=== PATIENT | female | born 1965 | race Caucasian/White ===

== ENCOUNTER 2016-08-12 08:13 | Emergency (ER) | payer BC, OTHER ==
[2016-08-12 08:23] VITALS: BP 124/70
--- NOTE | 2016-08-12 08:59 | EDM.PDOC ---
ED HPI GENERAL MEDICAL PROBLEM - General Chief Complaint: Respiratory Problem Stated Complaint: SENT FROM DR ALVARADO Time Seen by Provider: 08/12/16 08:40 Source of Information: Reports: Patient History Limitations: Reports: No Limitations - History of Present Illness INITIAL COMMENTS - FREE TEXT/NARRATIVE: This 51 yo female patient reports to the ED due to increased shortness of breath with exertion and weigh gain. The patient reports she started to notice shortness of breath over the weekend (Tuesday specifically). The patient reports she noticed some numbness and tingling that started Tuesday Morning when she went to work. The patient was seen in the [facility] on Tuesday, had a complete lab work-up, and had an EKG. The patient's Lasix was increased due to increased edema. The patient reports the swelling in her legs has gotten better , but now she continues to feel lightheaded and tingling throughout her body. The patient reports, this morning, she noticed increased shortness of breath while speaking with a coworker. The patient reports she was walking about 2 to 2 1/2 miles per day up until Tuesday, but has not been walking since that time. The patient reports she has been eating, drinking, urinating and having bowel movement regularly. The patient has a past history of Asthma, depression, WENDY, GERD, and LEROY on CPAP. Onset Date: 08/08/16 Duration: Intermittent Location: Reports: Generalized Quality: Reports: Other (lightheadedness, tingling, increased shortness of breath with exertion) Severity: Moderate Improves with: Reports: None Worsens with: Reports: Movement Associated Symptoms: Reports: No Other Symptoms - Related Data Allergies Allergy/AdvReac Type Severity Reaction Status Date / Time dexamethasone Allergy Vomiting Verified 08/12/16 08:23 lisdexamfetamine dimesylate Allergy Depression Verified 08/12/16 08:23 [From Vyvanse] meperidine HCl [From Demerol] Allergy Vomiting Verified 08/12/16 08:23 triazolam [From Halcion] Allergy Other Verified 08/12/16 08:23 Home Meds: Home Meds Citalopram Hydrobromide [Celexa] 40 mg PO BEDTIME 09/21/15 [History] oxyCODONE HCl/Acetaminophen [Percocet 5-325 mg Tablet] 1 each PO ASDIRECTED PRN 09/21/15 [History] Albuterol [IJD: Ventolin HFA] 2 puff INH .TWICE DAILY PRN 08/12/16 [History] Cetirizine [ZyrTEC] 10 mg PO DAILY PRN 08/12/16 [History] Cholecalciferol (Vitamin D3) [Vitamin D3] 1,000 unit PO DAILY 08/12/16 [History] ClonazePAM [KlonoPIN] 0.5 mg PO BID PRN 08/12/16 [History] Cyanocobalamin (Vitamin B-12) [Vitamin B-12] 100 mcg PO DAILY 08/12/16 [History] Esomeprazole [NexIUM] 40 mg PO ACBREAKFAST PRN 08/12/16 [History] Furosemide [Lasix] 40 mg PO DAILY 08/12/16 [History] Potassium Chloride [Klor-Con M20] 20 meq PO DAILY 08/12/16 [History] #103/Iron Fumarate/Fa [ ] 1 tab PO DAILY 08/12/16 [ History] Scopolamine [Transderm-Scop] 1.5 mg TOP ONETIME PRN 08/12/16 [History] Vilazodone [Viibryd] 40 mg PO DAILY 08/12/16 [History] risperiDONE [Risperidone] 0.5 mg PO BEDTIME 08/12/16 [History] traZODone 50 mg PO BEDTIME PRN 08/12/16 [History] Past Medical History HEENT History: Reports: Impaired Vision Respiratory History: Reports: Asthma Psychiatric History: Reports: Depression - Past Surgical History HEENT Surgical History: Reports: Eye Surgery GI Surgical History: Reports: Bariatric Procedure, Cholecystectomy Female Surgical History: Reports: Tubal Ligation Musculoskeletal Surgical History: Reports: Other (See Below) Social & Family History - Tobacco Use Smoking Status *Q: Never Smoker Second Hand Smoke Exposure: No - Caffeine Use Caffeine Use: Reports: Coffee, Soda - Recreational Drug Use Recreational Drug Use: No ED ROS GENERAL - Review of Systems Review Of Systems: ROS reveals no pertinent complaints other than HPI. ED EXAM, GENERAL - Physical Exam Exam: See Below Exam Limited By: No Limitations General Appearance: Alert, WD/WN, No Apparent Distress, Obese Eye Exam: Bilateral Eye: EOMI, Normal Inspection, PERRL Ears: Normal External Exam, Normal Canal, Hearing Grossly Normal, Normal TMs Nose: Normal Inspection, Normal Mucosa, No Blood Throat/Mouth: Normal Inspection, Normal Lips, Normal Teeth, Normal Gums, Normal Oropharynx, Normal Voice, No Airway Compromise Head: Atraumatic, Normocephalic Neck: Normal Inspection, Supple, Non-Tender, Full Range of Motion Respiratory/Chest: No Respiratory Distress, Lungs Clear, Normal Breath Sounds, No Accessory Muscle Use, Chest Non-Tender Cardiovascular: Normal Peripheral Pulses, Regular Rate, Rhythm, No Gallop, No Murmur, No Rub GI/Abdominal: Normal Bowel Sounds, Soft, Non-Tender, No Organomegaly, No Distention, No Abnormal Bruit, No Mass, Pelvis Stable, Other (morbid obesity) (Female) Exam: Deferred Rectal (Female) Exam: Deferred Back Exam: Normal Inspection, Full Range of Motion, NT Extremities: Normal Inspection, Normal Range of Motion, Non-Tender, Normal Capillary Refill, Pedal Edema (mild) Neurological: Alert, Oriented, CN II-XII Intact, Normal Cognition, Normal Gait, Normal Reflexes, No Motor/Sensory Deficits Psychiatric: Anxious, Depressed Mood Skin Exam: Warm, Dry, Intact, Normal Color, No Rash Lymphatic: No Adenopathy Course - Vital Signs Last Recorded V/S: Last Vital Signs Temp 36.2 C 08/12/16 08:15 Pulse 72 08/12/16 08:15 Resp 16 08/12/16 08:15 BP 124/70 08/12/16 08:15 Pulse Ox 100 08/12/16 08:15 - Orders/Labs/Meds Orders: Active Orders 24 hr Category Date Time Status EKG Documentation Completion [RC] URGENT Care 08/12/16 08:28 Active Chest w Cont [CT] Urgent Exams 08/12/16 09:36 Ordered Labs: Laboratory Tests 08/12/16 08/12/16 08/12/16 Range/Units 08:37 08:37 08:37 WBC 7.0 (5.0-10.0) 10^3/uL RBC 4.47 (4.2-5.4) 10^6/uL Hgb 11.7 L (12.0-16.0) g/dL Hct 36.6 L (37.0-47.0) % MCV 81.9 (80-100) fL MCH 26.2 L (27.0-34.0) pg MCHC 32.0 L (33.0-35.0) g/dL Plt Count 277 (150-450) 10^3/uL Neut % (Auto) 68.1 (42.2-75.2) % Lymph % (Auto) 21.0 (20.5-50.1) % [place] % (Auto) 7.6 (2-8) % Eos % (Auto) 3.0 (1.0-3.0) % Baso % (Auto) 0.3 (0.0-1.0) % D-Dimer, Quantitative 414 H (0-400) ng/mL Sodium 140 (135-145) mmol/L Potassium 3.6 (3.6-5.0) mmol/L Chloride 103 (101-111) mmol/L Carbon Dioxide 26.0 (21.0-31.0) mmol/L Anion Gap 14.6 BUN 11 (7-18) mg/dL Creatinine 0.7 (0.6-1.3) mg/dL Est Cr Clr Drug Dosing 89.01 mL/min Estimated GFR (MDRD) > 60 BUN/Creatinine Ratio 15.71 Glucose 120 H (74-105) mg/dL Calcium 9.1 (8.4-10.2) mg/dl Total Bilirubin 0.9 (0.2-1.0) mg/dL AST 29 (10-42) IU/L ALT 28 (10-60) IU/L Alkaline Phosphatase 65 (42-121) IU/L Troponin I < 0.02 (0.00-0.02) ng/ml B-Natriuretic Peptide 19 (0-100) pg/ml Total Protein 7.0 (6.7-8.2) g/dl Albumin 3.9 (3.2-5.5) g/dl Globulin 3.1 Albumin/Globulin Ratio 1.26 TSH, Ultra Sensitive (0.35-7.0) uIu/mL 08/12/16 Range/Units 08:37 WBC (5.0-10.0) 10^3/uL RBC (4.2-5.4) 10^6/uL Hgb (12.0-16.0) g/dL Hct (37.0-47.0) % MCV (80-100) fL MCH (27.0-34.0) pg MCHC (33.0-35.0) g/dL Plt Count (150-450) 10^3/uL Neut % (Auto) (42.2-75.2) % Lymph % (Auto) (20.5-50.1) % [place] % (Auto) (2-8) % Eos % (Auto) (1.0-3.0) % Baso % (Auto) (0.0-1.0) % D-Dimer, Quantitative (0-400) ng/mL Sodium (135-145) mmol/L Potassium (3.6-5.0) mmol/L Chloride (101-111) mmol/L Carbon Dioxide (21.0-31.0) mmol/L Anion Gap BUN (7-18) mg/dL Creatinine (0.6-1.3) mg/dL Est Cr Clr Drug Dosing mL/min Estimated GFR (MDRD) BUN/Creatinine Ratio Glucose (74-105) mg/dL Calcium (8.4-10.2) mg/dl Total Bilirubin (0.2-1.0) mg/dL AST (10-42) IU/L ALT (10-60) IU/L Alkaline Phosphatase (42-121) IU/L Troponin I (0.00-0.02) ng/ml B-Natriuretic Peptide (0-100) pg/ml Total Protein (6.7-8.2) g/dl Albumin (3.2-5.5) g/dl Globulin Albumin/Globulin Ratio TSH, Ultra Sensitive 0.86 (0.35-7.0) uIu/mL Meds: Medications Discontinued Medications Generic Name Dose Route Start Last Admin Trade Name Freq PRN Reason Stop Dose Admin Iopamidol 100 ml 08/12/16 09:36 08/12/16 10:40 Isovue-370 (76%) IVPUSH 08/12/16 09:37 100 ml ONETIME ONE Administration - Re-Assessments/Exams Free Text/Narrative Re-Assessment/Exam: 08/12/16 11:[address] results were received with no evidence of a PE. Consulted with Dr. Alvarado. Dr. Alvarado agreed to arrange for the patient to have follow-up with a business analyst project manager and with her psych providers. Departure - Departure Time of Disposition: 11:05 Disposition: Home, Self-Care 01 Condition: Fair Clinical Impression: Shortness of breath on exertion - Discharge Information Forms: ED Department Discharge Care Plan Goals: The patient was advised of the examination, lab, EKG, x-ray and CT results during the visit. The patient was encouraged to follow-up with Dr. Alvarado for continued evaluation (cardiology and psych). If the patient has any additional symptoms or concerns, the patient should follow-up with her primary care facility or return to the emergency department. - My Orders Last 24 Hours: My Active Orders 08/12/16 08:28 EKG Documentation Completion [RC] URGENT 08/12/16 09:36 Chest w Cont [CT] Urgent - Assessment/Plan Last 24 Hours: My Active Orders 08/12/16 08:28 EKG Documentation Completion [RC] URGENT 08/12/16 09:36 Chest w Cont [CT] Urgent
--- NOTE | 2016-08-12 09:04 | CR ---
Clinical history: 51-year-old female shortness of breath. Interpretation: Reasonable inspiratory effort obese female reveals no signs of acute cardiopulmonary abnormality. Slight kyphoscoliosis. Normal cardiac silhouette without cephalization of vascular flow, alveolar ed yamilet or dependent effusion. PA/lateral chest films unremarkable i.e. no lung mass, hilar lymphadenopathy, signs of reactive airway disease, focal lobar pneumonia or atelectasis/collapse. No pneumothorax.
[2016-08-12 09:05] LABS: CHLORIDE,CL 103 mmol/L (101-111); SODIUM,NA 140 mmol/L (135-145)
[2016-08-12] MEDS ORDERED: Iopamidol 755 Mg/ML 100 ML Bottle IVPUSH ONE (09:36)
--- NOTE | 2016-08-12 11:10 | CT ---
CLINICAL HISTORY: 51-year-old 275 pound female recurrent seasonal (spring) shortness of breath and a nxiety with a mildly elevated serum D dimer (414). Rule out pulmonary artery embolism/thrombus or ot her lung abnormality. SCAN TECHNIQUE: Volume acquisition of data from the chest (bony thorax, lungs, pulmonary vascularity and mediastinum) during the intravenous administration 83 ml nonionic Isovue 370 (4 cc/sec via inje ctor) while the patient was lying supine on the Siemens multislice scanner [place], [place]. All data archived in the PACS system for storage, reformatting and study. INTERPRETATION: 1. Generally poor inspiratory effort morbidly obese female. 2. No peribronchial "cuffing", air trapping or other signs of reactive airway disease. No cystic or bullous lesions lung. 3. No intraluminal filling defects or thrombus identified in the pulmonary artery circulation. No pe ripheral pleural-based wedge shaped infarct or associated effusions, i.e., very low probability pulm onary embolism. 4. Normal cardiac silhouette. No pericardial effusions. No cephalization of vascular flow or signs o f alveolar edema. 5. No lung mass or hilar/mediastinal lymphadenopathy. Normal caliber thoracic aorta. No aneurysm or dissection. 6. No focal lobar pneumonia or atelectasis/collapse. No pneumothorax. 7. Hypertrophic marginal spondylosis all nearly all levels dorsal spine. No pathologic skeletal lesi on, fracture or dislocation. CONCLUSION: Negative exam.
--- NOTE | 2016-08-16 09:01 | EKG ---
08/12/2016- BRIANNE TORRES - Twelve-lead EKG shows normal sinus rhythm. No significant ST elevation or ST depression noted on this 12-lead EKG. [facility] /[id number]
== END 2016-08-12 11:14 | disposition home or self-care (01) ==
LOC: DL.ED 08:13
DX: R06.02 Shortness of breath (principal); J45.909 Unspecified asthma, uncomplicated; F41.9 Anxiety disorder, unspecified; Z90.49 Acquired absence of other specified parts of digestive tract; Z98.51 Tubal ligation status; Z79.899 Other long term (current) drug therapy; Z98.890 Other specified postprocedural states; Z88.8 Allergy status to other drugs, medicaments and biological substances; Z88.5 Allergy status to narcotic agent
CPT/HCPCS: 36415; 71020; 71260; 80053; 83880; 84443; 84484; 85025; 85379; 93005; 99285; Q9967

== ENCOUNTER 2018-08-23 18:53 | Emergency (ER) | payer OTHER ==
[2018-08-23 20:09] LABS: ANION GAP 14.6; CHLORIDE,CL 104 mmol/L (101-111); SODIUM,NA 141 mmol/L (135-145)
--- NOTE | 2018-08-23 21:14 | EDM.PDOC ---
ED HPI GENERAL MEDICAL PROBLEM - General Chief Complaint: Lower Extremity Injury/Pain Stated Complaint: PAIN AND SWELLING IN LEGS Time Seen by Provider: 08/23/18 19:15 Source of Information: Reports: Patient History Limitations: Reports: No Limitations - History of Present Illness INITIAL COMMENTS - FREE TEXT/NARRATIVE: Last Tuesday left knee arthroscopy, noted increased swelling to medial left ankle and bruising around ankle tonight after home and taking off shoe and sock. Some ache to medial lower leg. No hx of DVT or PE. Surgical follow up on Tuesday due to amount of drainage, , No fever, Has been in car today to and from . 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, Other Medication(s) Left Lower Foot Pain Score (Numeric/FACES): 2 - Related Data Allergies Allergy/AdvReac Type Severity Reaction Status Date / Time dexamethasone Allergy Vomiting Verified 08/12/16 08:23 lisdexamfetamine dimesylate Allergy Depression Verified 08/12/16 08:23 [From Vyvanse] meperidine HCl [From Demerol] Allergy Vomiting Verified 08/12/16 08:23 triazolam [From Halcion] Allergy Other Verified 08/12/16 08:23 Home Meds: Home Meds Citalopram Hydrobromide [Celexa] 40 mg PO BEDTIME 09/21/15 [History] oxyCODONE HCl/Acetaminophen [Percocet 5-325 mg Tablet] 1 each PO ASDIRECTED PRN 09/21/15 [History] Albuterol [IJD: Ventolin HFA] 2 puff INH .TWICE DAILY PRN 08/12/16 [History] Cetirizine [ZyrTEC] 10 mg PO DAILY PRN 08/12/16 [History] Cholecalciferol (Vitamin D3) [Vitamin D3] 1,000 unit PO DAILY 08/12/16 [History] ClonazePAM [KlonoPIN] 0.5 mg PO BID PRN 08/12/16 [History] Cyanocobalamin (Vitamin B-12) [Vitamin B-12] 100 mcg PO DAILY 08/12/16 [History] Esomeprazole [NexIUM] 40 mg PO ACBREAKFAST PRN 08/12/16 [History] Furosemide [Lasix] 40 mg PO DAILY 08/12/16 [History] Potassium Chloride [Klor-Con M20] 20 meq PO DAILY 08/12/16 [History] #103/Iron Fumarate/Fa [ ] 1 tab PO DAILY 08/12/16 [ History] Scopolamine [Transderm-Scop] 1.5 mg TOP ONETIME PRN 08/12/16 [History] Vilazodone [Viibryd] 40 mg PO DAILY 08/12/16 [History] risperiDONE [Risperidone] 0.5 mg PO BEDTIME 08/12/16 [History] traZODone 50 mg PO BEDTIME PRN 08/12/16 [History] Past Medical History HEENT History: Reports: Impaired Vision Other HEENT History: wear glasses Cardiovascular History: Reports: None Respiratory History: Reports: Asthma Genitourinary History: Reports: None 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 Musculoskeletal History: Reports: None Neurological History: Reports: None Psychiatric History: Reports: Anxiety, Depression Endocrine/Metabolic History: Reports: None Hematologic History: Reports: None Immunologic History: Reports: None Oncologic (Cancer) History: Reports: None Dermatologic History: Reports: None - Infectious Disease History Infectious Disease History: Reports: Chicken Pox - Past Surgical History Head Surgeries/Procedures: Reports: None HEENT Surgical History: Reports: Eye Surgery GI Surgical History: Reports: Bariatric Procedure, Cholecystectomy Female Surgical History: Reports: Tubal Ligation Musculoskeletal Surgical History: Reports: Arthroscopic Knee Other Musculoskeletal Surgeries/Procedures:: [place] Medial knee surgery Social & Family History - Family History Family Medical History: Noncontributory - Tobacco Use Smoking Status *Q: Unknown Ever Smoked Second Hand Smoke Exposure: No - Caffeine Use Caffeine Use: Reports: Coffee, Soda - Recreational Drug Use Recreational Drug Use: No Review of Systems - Review of Systems Review Of Systems: ROS reveals no pertinent complaints other than HPI. ED EXAM, GENERAL - Physical Exam Exam: See Below Exam Limited By: No Limitations General Appearance: No Apparent Distress, Mild Distress, Obese Eye Exam: Bilateral Eye: PERRL Ears: Normal External Exam Nose: Normal Inspection Throat/Mouth: Normal Inspection Head: Atraumatic, Normocephalic Neck: Normal Inspection Respiratory/Chest: No Respiratory Distress, Lungs Clear Cardiovascular: Normal Peripheral Pulses, Regular Rate, Rhythm GI/Abdominal: Normal Bowel Sounds Extremities: Pedal Edema (2+bilateral below knee), Joint Swelling (left knee with post op inscision mild bruising small amount serous drainage on bandage no warmth or redness to knee), Other (purple echymosis left medial ankle non tneder.) Neurological: Alert, Oriented Psychiatric: Normal Affect, Normal Mood Skin Exam: Warm, Dry, Ecchymosis, Wound/Incision (left knee surgical) Course - Vital Signs Last Recorded V/S: Last Vital Signs Temp 98.6 F 08/23/18 21:18 Pulse 82 08/23/18 21:18 Resp 18 08/23/18 21:18 BP 143/83 H 08/23/18 21:18 Pulse Ox 98 08/23/18 21:18 - Orders/Labs/Meds Orders: Active Orders 24 hr Category Date Time Status Venous Doppler Lwr Ext Lt [US] Urgent Exams 08/23/18 19:34 Taken Labs: Laboratory Tests 08/23/18 08/23/18 Range/Units 19:44 19:44 WBC 7.0 (5.0-10.0) 10^3/uL RBC 4.37 (4.2-5.4) 10^6/uL Hgb 13.4 D (12.0-16.0) g/dL Hct 40.5 (37.0-47.0) % MCV 92.7 D (80-100) fL MCH 30.7 (27.0-34.0) pg MCHC 33.1 (33.0-35.0) g/dL Plt Count 244 (150-450) 10^3/uL Neut % (Auto) 62.8 (42.2-75.2) % Lymph % (Auto) 25.6 (20.5-50.1) % [place] % (Auto) 10.1 H (2-8) % Eos % (Auto) 1.4 (1.0-3.0) % Baso % (Auto) 0.1 (0.0-1.0) % Sodium 141 (135-145) mmol/L Potassium 3.6 (3.6-5.0) mmol/L Chloride 104 (101-111) mmol/L Carbon Dioxide 26.0 (21.0-31.0) mmol/L Anion Gap 14.6 BUN 13 (7-18) mg/dL Creatinine 0.8 (0.6-1.3) mg/dL Est Cr Clr Drug Dosing 76.13 mL/min Estimated GFR (MDRD) > 60 BUN/Creatinine Ratio 16.25 Glucose 110 H (74-105) mg/dL Calcium 9.6 (8.4-10.2) mg/dl Total Bilirubin 1.6 H (0.2-1.0) mg/dL AST 21 (10-42) IU/L ALT 19 (10-60) IU/L Alkaline Phosphatase 62 (42-121) IU/L B-Natriuretic Peptide 7 (0-100) pg/ml Total Protein 6.9 (6.7-8.2) g/dl Albumin 4.1 (3.2-5.5) g/dl Globulin 2.8 Albumin/Globulin Ratio 1.46 - Radiology Interpretation Free Text/Narrative:: [facility] Final Radiology Report Call: [phone] assistance Online chat: [email or web address] Name: BRIANNE TORRES Age: 53Years F Date: 08/23/2018 SSN: -- : 1965 Study: US DUPLEX EXTREM VEINS [facility] Requesting Physician: REUBEN FENG Images: 38 Addl Studies: Provided Clinical History: Contrast: Without Contrast Medium: Contrast Amount: Contrast Method: Page 1 of 2 EXAM: US Duplex Left Lower Extremity Veins, Limited EXAM DATE/TIME: 08/23/2018 8:11 PM CLINICAL HISTORY: 53 years old, female; Edema, localized; Lower extremity, left; Prior surgery; Surgery date: 3-7 days post-operative; Surgery type: Lt leg swelling, S/P lt knee arthroscopy 6days TECHNIQUE: Imaging protocol: Real-time Duplex ultrasound of the Left Lower Extremity with 2 -D lopez scale, color Doppler flow and spectral waveform analysis. Limited exam focused on the left lower extremity veins. COMPARISON: No relevant prior studies available. FINDINGS: Left deep veins: Unremarkable. The common femoral, femoral, proximal profunda femoral and popliteal veins are patent without thrombus. Normal Doppler waveforms. Normal compressibility and/or augmentation response. Left superficial veins: Unremarkable. Saphenofemoral junction is patent without thrombus. Soft tissues: Fluid collection is noted above the left patella. This measures 8.0 x 5.0 x 1.6 cm. IMPRESSION: 1. No evidence of deep vein thrombosis. 2. Fluid collection noted above the left patella. BRIANNE TORRES Departure - Departure Time of Disposition: 21:09 Disposition: Home, Self-Care 01 Condition: Good Clinical Impression: S/P left knee arthroscopy, Left ankle swelling, Seroma after procedure - Discharge Information *PRESCRIPTION DRUG MONITORING PROGRAM REVIEWED*: No *COPY OF PRESCRIPTION DRUG MONITORING REPORT IN PATIENT NICKI: No Instructions: Knee Arthroscopy, Care After Forms: ED Department Discharge Additional Instructions: limit salt, sodium intake activity every 1-2 hours while traveling continue diuretic daily as needed monitor wound and knee for increase redness swelling warm - My Orders Last 24 Hours: My Active Orders 08/23/18 19:34 Venous Doppler Lwr Ext Lt [US] Urgent - Assessment/Plan Last 24 Hours: My Active Orders 08/23/18 19:34 Venous Doppler Lwr Ext Lt [US] Urgent
[2018-08-23 21:19] VITALS: BP 143/83
== END 2018-08-23 21:19 | disposition home or self-care (01) ==
LOC: DL.ED 18:53
DX: M96.842 Postprocedural seroma of a musculoskeletal structure following a musculoskeletal system procedure (principal); F41.9 Anxiety disorder, unspecified; F32.9 Major depressive disorder, single episode, unspecified; J45.909 Unspecified asthma, uncomplicated; Z98.890 Other specified postprocedural states; Z88.8 Allergy status to other drugs, medicaments and biological substances; Z88.5 Allergy status to narcotic agent
CPT/HCPCS: 36415; 80053; 83880; 85025; 93971; 99284-25